=== PATIENT | female | born 1955 | race Caucasian/White ===

== ENCOUNTER → 2016-08-14 | Outpatient (CLI) | payer BC ==
--- NOTE | 2016-08-14 14:12 | MA ---
Diagnostic Digital Mammogram With iCAD Analysis Clinical Indications: Surveillance in a 61-year-old female with a history of left breast cancer treat ed with treated with lumpectomy. Technique: Standard cephalocaudal projections are obtained. Digital breast tomosynthesis was performe d in the MLO projection with reconstruction at 1.0 mm slice thickness and composite MLO views reconst ructed. Skin markers are placed on left breast surgical scars. This examination is processed by the [facility] CAD computer aided detection system. Comparison: March 2016, December 2015, July 2015, April 2014, June 2011. Breast density: Type C: Heterogeneously dense. Findings: CAD was reviewed. Architectural change of the left breast lumpectomy site is stable. No mas ses, suspicious calcifications or secondary signs of malignancy are seen. There has been no significa nt change in the appearance of either breast. Impression: Benign post lumpectomy mammography, BI-RADS 2. Recommendation: Routine mammographic screening in one year as long as physical examination is negativ e in this patient with heterogeneously dense breast parenchyma. On License Of [facility] will send a result letter to the patient. Negative mammography should not preclude additional workup of a clinically suspicious finding. The patient's information is entered into a reminder system with a target due date for her next mammo gram. . The patient has also had a benign left breast biopsy.
== END ==
LOC: FIMAGING 13:20
PROVIDERS: ATTEND Radiology Radiation Oncology
DX: Z08 Encounter for follow-up examination after completed treatment for malignant neoplasm (principal); Z85.3 Personal history of malignant neoplasm of breast
CPT/HCPCS: G0204; G0279

== ENCOUNTER → 2016-09-29 | Outpatient (CLI) | payer BC | LOC: FIMAGING 16:45 | PROVIDERS: ATTEND Physician Assistant Surgical | DX: Z98.1 Arthrodesis status (principal); M54.2 Cervicalgia ==

== ENCOUNTER → 2017-08-27 | Outpatient (CLI) | payer BC, OTHER | LOC: FIMAGING 12:05 | PROVIDERS: ATTEND Radiology Radiation Oncology | DX: Z12.31 Encounter for screening mammogram for malignant neoplasm of breast (principal); Z86.000 Personal history of in-situ neoplasm of breast ==

== ENCOUNTER → 2018-11-17 | Outpatient (CLI) | payer OTHER | LOC: FIMAGING 13:51 | PROVIDERS: ATTEND Internal Medicine | DX: Z12.31 Encounter for screening mammogram for malignant neoplasm of breast (principal); Z13.820 Encounter for screening for osteoporosis; E07.9 Disorder of thyroid, unspecified; Z78.0 Asymptomatic menopausal state; Z85.3 Personal history of malignant neoplasm of breast ==